=== PATIENT | male | born 1980 | race Caucasian/White ===

== ENCOUNTER 2018-02-24 10:20 | Emergency (ER) | payer SELFPAY ==
[~2018-02-24] VITALS: Ht 170.2 cm; Wt 70.3 kg
--- NOTE | 2018-02-24 10:34 | NUR ---
PT BIB SELF C/O NOSE INFLAMMATION AND RIGHT LEG SWELLING, PT IS AOX4, NOT IN RESPIRATORY DISTRESS, V/S STABLE, KEPT RESTED AND COMFORTABLE, AWAITING ER MD FOR EVAL.
--- NOTE | 2018-02-24 10:48 | NUR ---
Patient discharged to home in stable condition. Written and verbal after care instructions given. Patient verbalizes understanding of instruction.
[2018-02-24 10:49] VITALS: BP 132/81
== END 2018-02-24 10:50 | disposition home or self-care (01) ==
LOC: ER 10:20
DX: L01.00 Impetigo, unspecified (principal); F15.10 Other stimulant abuse, uncomplicated
CPT/HCPCS: A4606; Z7610